=== PATIENT | female | born 1985 | race Caucasian/White ===

== ENCOUNTER 2016-06-02 21:55 | Emergency (ER) | payer BC ==
[2016-06-02 22:08] VITALS: BP 131/97
--- NOTE | 2016-06-02 22:20 | EDM.PDOC ---
ED HPI GENERAL MEDICAL PROBLEM - General Chief Complaint: ENT Problem Stated Complaint: FOOD LODGED IN THROAT Time Seen by Provider: 06/02/16 22:20 - History of Present Illness INITIAL COMMENTS - FREE TEXT/NARRATIVE: 31-year-old female presents to the emergency room with a sensation that something is stuck in her throat. This seems to be an ongoing problem over the last 2 months perhaps getting worse. This evening it was aggravating by eating pork chops.the patient is able to swallow and drink and eat without to much difficulty. Just feels like she has something stuck. She points to the area of her cricoid cartilage. The patient does not have a history of thyroid problems. She is 5 months and still nursing. She has intermittent acid reflux and takes Pepcid on an as- needed basis this could be a couple of times a week. During her she had to take Pepcid throughout most of the . Generally the patient has enjoyed good health. She uses as needed Pepcid and is taking calcium and vitamins. - Related Data Allergies Allergy/AdvReac Type Severity Reaction Status Date / Time No Known Allergies Allergy Verified 12/17/15 09:02 Home Meds: Home Meds Vit W-Ca,Fe,FA(<1 mg) [ Vitamins] 1 tab PO DAILY 12/17/15 [ History] Ranitidine [Zantac] 150 mg PO BID PRN 12/17/15 [History] Calcium Carbonate [Calcium] 500 mg PO DAILY 06/02/16 [History] Lansoprazole [Prevacid] 30 mg PO Q24H #30 capsule. 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 LEEP 2012 Endocrine/Metabolic History: Reports: Diabetes, gestational Dermatologic History: Reports: Eczema - Past Surgical History Female Surgical History: Reports: LEEP Other Female Surgeries/Procedures: 2012 Social & Family History - Family History Family Medical History: Noncontributory - Tobacco Use Smoking Status *Q: Never Smoker - Caffeine Use Caffeine Use: Reports: Coffee - Recreational Drug Use Recreational Drug Use: No ED ROS GENERAL - Review of Systems Review Of Systems: See Below Constitutional: Reports: no symptoms. Denies: fever, chills HEENT: Reports: Other (see history of present illness) Respiratory: Reports: no symptoms Cardiovascular: Reports: No symptoms GI/Abdominal: Reports: No symptoms : Reports: other (she has irregular periods recently had an IEP placed) Musculoskeletal: Reports: no symptoms Neurological: Reports: no symptoms ED EXAM, GENERAL - Physical Exam Exam: See Below Exam Limited By: No limitations General Appearance: alert, no apparent distress Ears: normal external exam, normal canal, hearing grossly normal, normal TMs Nose: normal inspection, normal mucosa, no blood Throat/Mouth: Normal inspection Head: atraumatic, normocephalic Neck: normal inspection, supple, non-tender, full range of motion Respiratory/Chest: no respiratory distress, lungs clear, normal breath sounds Cardiovascular: regular rate, rhythm, no edema, no murmur GI/Abdominal: normal bowel sounds, soft, non tender Course - Vital Signs Last Recorded V/S: Last Vital Signs Temp 35.6 C 06/02/16 22:04 Pulse 59 L 06/02/16 22:04 Resp 16 06/02/16 22:04 BP 131/97 H 06/02/16 22:04 Pulse Ox 97 06/02/16 22:04 - Orders/Labs/Meds Orders: Active Orders 24 hr Category Date Time Status Chest 2V [CR] Stat Exams 06/02/16 22:37 Taken Neck Soft Tissue [CR] Stat Exams 06/02/16 22:45 Taken Soft Tissue Neck w Cont [CT] Stat Exams 06/03/16 00:41 Taken Labs: Laboratory Tests 06/02/16 06/02/16 06/02/16 Range/Units 22:45 22:45 22:45 WBC 8.25 (3.98-10.04) K/mm3 RBC 5.21 (3.98-5.22) M/mm3 Hgb 15.4 (11.2-15.7) gm/L Hct 45.1 H (34.1-44.9) % MCV 86.6 (79.4-94.8) fl MCH 29.6 (25.6-32.2) pg MCHC 34.1 (32.2-35.5) g/dl RDW Std Deviation 38.5 (36.4-46.3) fL Plt Count 258 (182-369) K/mm3 MPV 10.7 (9.4-12.3) fl Neutrophils % (Manual) 49 (40-60) % Band Neutrophils % 0 (0-10) % Lymphocytes % (Manual) 50 H (20-40) % Atypical Lymphs % 0 % Immat Monocytes % (Man) 0 Monocytes % (Manual) 1 L (2-10) % Eosinophils % (Manual) 0 L (0.7-5.8) % Basophils % (Manual) 0 L (0.1-1.2) Metamyelocytes % 0 Myelocytes % 0 Promyelocytes % 0 Blast Cells % 0 Plasma Cell % (Manual) 0 Nucleated RBCs 0.0 % Platelet Estimate Adequate RBC Morph Comment Normal Sodium 141 (136-145) mEq/L Potassium 3.7 (3.5-5.1) mEq/L Chloride 102 (98-107) mEq/L Carbon Dioxide 29 (21-32) mEq/L Anion Gap 13.7 (5-15) BUN 12 (7-18) mg/dL Creatinine 0.7 (0.55-1.02) mg/dL Est Cr Clr Drug Dosing 102.86 mL/min Estimated GFR (MDRD) > 60 (>60) mL/min BUN/Creatinine Ratio 17.1 (14-18) Glucose 87 (74-106) mg/dL Calcium 10.5 H (8.5-10.1) mg/dL Total Bilirubin 0.5 (0.2-1.0) mg/dL AST 14 L (15-37) U/L ALT 24 (14-59) U/L Alkaline Phosphatase 150 H (46-116) U/L Total Protein 8.0 (6.4-8.2) g/dl Albumin 4.4 (3.4-5.0) g/dl Globulin 3.6 gm/dL Albumin/Globulin Ratio 1.2 (1-2) TSH 3rd Generation (0.358-3.74) uIU/mL HCG, Qual Negative (NEGATIVE) 06/02/16 Range/Units 22:45 WBC (3.98-10.04) K/mm3 RBC (3.98-5.22) M/mm3 Hgb (11.2-15.7) gm/L Hct (34.1-44.9) % MCV (79.4-94.8) fl MCH (25.6-32.2) pg MCHC (32.2-35.5) g/dl RDW Std Deviation (36.4-46.3) fL Plt Count (182-369) K/mm3 MPV (9.4-12.3) fl Neutrophils % (Manual) (40-60) % Band Neutrophils % (0-10) % Lymphocytes % (Manual) (20-40) % Atypical Lymphs % % Immat Monocytes % (Man) Monocytes % (Manual) (2-10) % Eosinophils % (Manual) (0.7-5.8) % Basophils % (Manual) (0.1-1.2) Metamyelocytes % Myelocytes % Promyelocytes % Blast Cells % Plasma Cell % (Manual) Nucleated RBCs % Platelet Estimate RBC Morph Comment Sodium (136-145) mEq/L Potassium (3.5-5.1) mEq/L Chloride (98-107) mEq/L Carbon Dioxide (21-32) mEq/L Anion Gap (5-15) BUN (7-18) mg/dL Creatinine (0.55-1.02) mg/dL Est Cr Clr Drug Dosing mL/min Estimated GFR (MDRD) (>60) mL/min BUN/Creatinine Ratio (14-18) Glucose (74-106) mg/dL Calcium (8.5-10.1) mg/dL Total Bilirubin (0.2-1.0) mg/dL AST (15-37) U/L ALT (14-59) U/L Alkaline Phosphatase (46-116) U/L Total Protein (6.4-8.2) g/dl Albumin (3.4-5.0) g/dl Globulin gm/dL Albumin/Globulin Ratio (1-2) TSH 3rd Generation 2.321 (0.358-3.74) uIU/mL HCG, Qual (NEGATIVE) Meds: Medications Discontinued Medications Generic Name Dose Route Start Last Admin Trade Name Freq PRN Reason Stop Dose Admin Glucagon 1 mg 06/02/16 22:32 06/02/16 22:47 Glucagen IVPUSH 06/02/16 22:33 1 mg ONETIME ONE Administration Lactated Ringer's 500 mls @ 999 mls/hr 06/03/16 00:39 06/03/16 00:46 Ringers, Lactated IV 06/03/16 01:09 999 mls/hr .BOLUS ONE Administration Iopamidol 100 ml 06/03/16 01:18 06/03/16 01:19 Isovue-300 (61%) IVPUSH 06/03/16 01:19 80 ml ONETIME ONE Administration Pantoprazole Sodium 40 mg 06/02/16 22:36 06/02/16 22:51 Protonix Iv IVPUSH 06/02/16 22:37 40 mg ONETIME ONE Administration - Re-Assessments/Exams Free Text/Narrative Re-Assessment/Exam: 06/02/16 23:53 patient is doing better after glucagon. Laboratory evaluation unrevealing TSH normal. Chest x-ray is unremarkable soft tissue neck x-rays reveal what could be some soft tissue swelling in the epiglottic area, we will forward this to [facility] before pursuing further imaging. Early on in the patient's care the case was discussed with Dr. Roberto this is been going on for a couple of months worse over time. She has a history of intermittent reflux. She's 5 months and during her she had to stay on Pepcid. She's been using Pepcid when necessary several times a week. It sounds like a lot of her symptoms may be due to reflux and not necessarily a foreign body. Albeit the patient may been worsened by he eating pork chops this evening. But she's much better after the glucagon. 06/03/16 01:01 Dr. Powers radiologist from [facility] called and confirmed the soft tissue thickening in the preepiglottic space in the area it at the glottic folds as well as some possible thickening in the epiglottis she recommended further imaging with CAT scan. I discussed this with the patient I believe her situation is fairly stable however if something is going on they could compromise her airway we are better off knowing now as we have limited resources here. The patient is in agreement to this for getting the CAT scan now rather than getting one as an outpatient. 06/03/16 01:[address] is found to be unremarkable and is now believed that the x-ray was due to artifact. The patient will be discharged home on daily Prevacid. She should follow up with Dr. Roberto this next week. Departure - Departure Time of Disposition: 01:48 Disposition: Home, Self-Care 01 Clinical Impression: Sensation of foreign body in esophagus, Gastroesophageal reflux disease Prescriptions: Lansoprazole [Prevacid] 30 mg PO Q24H #30 capsule. Referrals: PCP,None [Primary Care Provider] - Cari Roberto MD [Physician] - Forms: ED Department Discharge Additional Instructions: Return to the emergency room with any questions or problems. Followup with Dr. Roberto next week. You've been started on Prevacid take one daily. This works best if taken 30-60 minutes before your evening or morning meal. Pump your breast milk one time and dump as you received IV contrast. - My Orders Last 24 Hours: My Active Orders 06/02/16 22:37 Chest 2V [CR] Stat 06/02/16 22:45 Neck Soft Tissue [CR] Stat 06/03/16 00:41 Soft Tissue Neck w Cont [CT] Stat - Assessment/Plan Last 24 Hours: My Active Orders 06/02/16 22:37 Chest 2V [CR] Stat 06/02/16 22:45 Neck Soft Tissue [CR] Stat 06/03/16 00:41 Soft Tissue Neck w Cont [CT] Stat
[2016-06-02] MEDS: Glucagon,Human Recombinant 1 MG Vial IVPUSH ONE (22:47)
[2016-06-02] MEDS: Pantoprazole 40 MG Vial IVPUSH ONE (22:51)
[2016-06-03] MEDS: Lactated Ringers 500 ML IV ONE (00:46)
[2016-06-03] MEDS: Iopamidol 612 MG/ML 100 ML Bottle IVPUSH ONE (01:19)
--- NOTE | 2016-06-03 10:01 | CT ---
CT neck Technique: Multiple axial sections through the neck were obtained from above the external auditory canals inferiorly to the lung apices. Intravenous contrast was utilized. Findings: Paranasal sinuses are clear. Mastoid sinuses are clear. Middle ear cavities are clear. Normal enhancing vascular structures are noted within the neck. Submandibular and parotid salivary glands are unremarkable. No adenopathy or neck mass is seen. Small normal-appearing scattered lymph nodes are seen. Visualized lung apices are clear. Prevertebral soft tissues are normal. Parapharyngeal soft tissues are normal. Epiglottis appears within normal limits. Uvula appears slightly prominent in size. Bone window settings were reviewed which appear unremarkable. Impression: 1. Uvula appears slightly prominent in size. Please correlate clinically. Difficult to exclude mild soft tissue swelling. 2. CT study of the neck is otherwise unremarkable. Diagnostic code #3 Agree with preliminary report issued by [facility] (additional note of possible swelling within the uvula), ([facility] report dictated on 06/03/16, 2:41 AM Central Time)
--- NOTE | 2016-06-04 08:46 | CR ---
Chest: Two views of the chest were obtained. Comparison: No previous chest x-ray. Heart size and mediastinum are within normal limits. Lungs are clear. Bony structures are unremarkable. No opaque foreign object is seen. Impression: 1. Nothing acute is seen on two-view chest x-ray. Diagnostic code #1
--- NOTE | 2016-06-04 08:46 | CR ---
Soft tissue neck: Two views of the neck were obtained for soft tissue purposes. Mild cervical and upper thoracic scoliosis is noted. Epiglottis is normal. Prevertebral soft tissues are normal. No opaque foreign object is seen. Impression: 1. Incidental finding. No opaque foreign object is appreciated. Diagnostic code #2
== END 2016-06-03 02:00 | disposition home or self-care (01) ==
LOC: JD.ED 21:55
DX: K22.8 Other specified diseases of esophagus (principal); K21.9 Gastro-esophageal reflux disease without esophagitis; Z79.899 Other long term (current) drug therapy; Z98.890 Other specified postprocedural states
CPT/HCPCS: 36415; 70360; 70491; 71020; 80053; 84443; 84703; 85025; 96361; 96374; 96375; 99284; C9113; J1610; J7120; Q9967

== ENCOUNTER 2016-06-06 22:27 | Emergency (ER) | payer BC ==
[2016-06-06 22:45] VITALS: BP 159/90
--- NOTE | 2016-06-06 22:58 | EDM.PDOC ---
ED HPI Trauma - General Chief Complaint: Lower Extremity Injury/Pain Stated Complaint: INJURED LEFT FOOT Time Seen by Provider: 06/06/16 22:58 Source: Reports: Patient, Family (spouse) History Limitations: Reports: No limitations - History of Present Illness INITIAL COMMENTS - FREE TEXT/NARRATIVE: 30-year-old female presents the ED with an acute injury to her left lateral foot. Treatment per she is breast-feeding her and when she got up to put the baby in the crib she did not appreciate that her left foot had gone to sleep. This resulted in an inversion injury to the foot and ankle. She did not fall and managed to get the baby to the crib safely. She heard a crack and pop and is unable to weight-bear normally. She can put light weight on her heel only. No other injuries occurred. Symptom Onset Date: 06/06/16 Symptom Onset Time: 22:00 Occurred When: just prior to arrival Occurred Where: home Method of Injury: other (inversion injury left foot) Severity: moderate Pain/Injury Location: Reports: lower extremity, left Consciousness: Reports: no loss of consciousness (left lateral foot), remembers incident, remembers coming to hosp Associated Symptoms: Reports: no other symptoms Allergies/ADRs: Allergies No Known Allergies Allergy (Verified 06/06/16 22:44) Home Medications: Ambulatory Orders Vit W-Ca,Fe,FA(<1 mg) [ Vitamins] 1 tab PO DAILY 12/17/15 [ Confirmed 06/06/16] Calcium Carbonate [Calcium] 500 mg PO DAILY 06/02/16 [Confirmed 06/06/16] Lansoprazole [Prevacid] 30 mg PO Q24H #30 capsule. 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 Better since she delivered up her .) Genitourinary: Reports: no symptoms Musculoskeletal: Reports: other (left foot pain at present.) Skin: Reports: no symptoms Neurological: Reports: no symptoms Trauma Exam - Physical Exam Exam: See Below Exam Limited By: No limitations General Appearance: Reports: alert, WD/WN, moderate distress (does appear to be in moderate amount of pain.) Head: Reports: atraumatic, normocephalic Extremities: Reports: other (chest no pain on palpation of the proximal fibula and tibia. No pain in the midshaft of the tib-fib. The ankle itself appears to be normal. There may be some mild tenderness along the lateral ligaments anteriorly. There is a hematoma developing over the fourth and fifth mid metatarsals. Any movement of the toes causes pain suspicious for fracture of the metatarsal.) Neurologic: Reports: no motor/sensory deficits, alert, oriented x 3 Skin: Reports: Normal color, Warm/dry - [place] Coma Score Best Eye Response ([place]): (4) open spontaneously Best Verbal Response ([place]): (5) oriented Best Motor Response ([place]): (6) obeys commands [place] Total: 15 Course - Vital Signs Last Recorded V/S: Last Vital Signs Temp 36.4 C 06/06/16 22:41 Pulse 85 06/06/16 22:41 Resp 18 06/06/16 22:41 BP 159/90 H 06/06/16 22:41 Pulse Ox 98 06/06/16 22:41 - Orders/Labs/Meds Orders: Active Orders 24 hr Category Date Time Status Foot Comp Min 3V Lt [CR] Stat Exams 06/06/16 22:54 Taken - Radiology Interpretation Free Text/Narrative:: 30-year-old female presents the ED with acute injury to her left foot. Foot was asleep when she got up to put the baby into the crib. She inverted the foot and ankle. The ankle itself appears to be intact although there may be a mild strain of the anterior lateral ligament. Hematoma is noted over the fourth and fifth mid metatarsals. Suspect fracture. Plan x-ray left foot. - Re-Assessments/Exams Free Text/Narrative Re-Assessment/Exam: 06/06/16 23:27x-rays of the left foot do not reveal any fractures in the metatarsals or mid foot bones that I can identify. Pain somewhat surprised by this as I anticipated fracture clinically patient will be treated with nonweightbearing crutch walking. Lars wrap applied in the ED. Ice to the area for one half hour out of every 4 hours for the next 2 days. Motrin 600 mg every 6 hours needed for pain relief. Followup if not completely back to normal in 10 days' time Departure - Departure Time of Disposition: 23:24 Disposition: Home, Self-Care 01 Condition: fair Clinical Impression: Contusion of foot, left Qualifiers: Encounter type: initial encounter Qualified Code(s): S90.32XA - Contusion of left foot, initial encounter Referrals: PCP,None [Primary Care Provider] - Forms: ED Department Discharge Additional Instructions: evaluation in the emergency today in regards to acute injury to her left lateral foot. Inadvertently inverted the foot when he got up and did not appreciate the foot had fallen asleep while breast-feeding her . [place] and heard a loud pop when this occurred. Obvious hematoma swelling occurring over the lateral aspect of the mid fourth and fifth metatarsals. Mild strain of the anterior lateral ankle ligament appreciated on exam. X-rays of the foot and ankle however did not reveal any broken bones. This is good news for you. Suggest nonweightbearing crutch walking for the next 3-4 days until he can put full weight on her foot without any pain. Lars wrap applied in the ED should stay on overnight and all-day tomorrow but should come off tomorrow night and then back on during the day for the next 3 days. Ice pack to the area one half hour out of every 4 hours for the next 48 hours. Motrin 600 mg every 6 hours as needed for pain relief. If not completely back to normal in 10 days' time repeat x-rays should be done in case there is a hairline fracture that we cannot visualize on today's x-rays. - My Orders Last 24 Hours: My Active Orders 06/06/16 22:54 Foot Comp Min 3V Lt [CR] Stat - Assessment/Plan Last 24 Hours: My Active Orders 06/06/16 22:54 Foot Comp Min 3V Lt [CR] Stat
--- NOTE | 2016-06-07 08:01 | CR ---
Left foot: Four views of the left foot were obtained. Comparison: No previous foot study. Joint spaces are maintained. No fracture, dislocation or other bony abnormality is seen. Impression: 1. No bony abnormality is identified on left foot exam. Diagnostic code #1
== END 2016-06-06 23:38 | disposition home or self-care (01) ==
LOC: JD.ED 22:27
DX: S90.32XA Contusion of left foot, initial encounter (principal); K21.9 Gastro-esophageal reflux disease without esophagitis; X50.1XXA Overexertion from prolonged static or awkward postures, initial encounter; Y92.009 Unspecified place in unspecified non-institutional (private) residence as the place of occurrence of the external cause
CPT/HCPCS: 73630-26-LT; 73630-LT; 99282; 99283

== ENCOUNTER 2020-08-21 08:13 | Emergency (ER) | payer BC ==
--- NOTE | 2020-08-21 11:25 | EDM.PDOC ---
ED HPI GENERAL MEDICAL PROBLEM - General Chief Complaint: Abdominal Pain Stated Complaint: LOWER ABD PAIN Time Seen by Provider: 08/21/20 08:38 Source of Information: Reports: Patient, RN Notes Reviewed - History of Present Illness INITIAL COMMENTS - FREE TEXT/NARRATIVE: 35 yr old female with onset of abd pain yesterday afternoon, was better during the night and than more severe this early AM. Continues with sharp mid abd pain that does not radiate. No nausea, vomiting, or diarrhea. Denies constipation. Had a "nl BM earlier today". No chest pain or difficulty breathing. Still has her appendix. Has an IUD. Denies any possibility of , "has not been sexually active for more than 4 months". Lower Abdomen Pain Score (Numeric/FACES): 6 - Related Data Allergies Allergy/AdvReac Type Severity Reaction Status Date / Time amoxicillin [From Augmentin] Allergy Cannot Verified 08/21/20 08:49 Remember clavulanic acid Allergy Cannot Verified 08/21/20 08:49 [From Augmentin] Remember Home Meds: Home Meds Lansoprazole [Prevacid] 30 mg PO Q24H #30 capsule. 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 LEEP 2011 Psychiatric History: Reports: Anxiety Endocrine/Metabolic History: Reports: Diabetes, Gestational Dermatologic History: Reports: Eczema - Past Surgical History HEENT Surgical History: Reports: Oral Surgery Female Surgical History: Reports: LEEP Other Female Surgeries/Procedures: 2012 Social & Family History - Family History Family Medical History: No Pertinent Family History - Tobacco Use Tobacco Use Status *Q: Never Tobacco User - Caffeine Use Caffeine Use: Reports: None - Recreational Drug Use Recreational Drug Use: No - Living Situation & Occupation Living situation: Reports: Occupation: Other ED ROS GENERAL - Review of Systems Review Of Systems: See Below Constitutional: Denies: Fever, Chills, Diaphoresis HEENT: Reports: No Symptoms Respiratory: Denies: Shortness of Breath Cardiovascular: Denies: Chest Pain GI/Abdominal: Reports: Abdominal Pain. Denies: Constipation, Diarrhea, Hematochezia, Melena, Nausea, Vomiting Musculoskeletal: Denies: Back Pain Skin: Reports: No Symptoms Neurological: Reports: No Symptoms ED EXAM, GI/ABD - Physical Exam Exam: See Below General Appearance: Alert, Mild Distress Throat/Mouth: Normal Inspection Head: Atraumatic Neck: Supple Respiratory/Chest: No Respiratory Distress, Lungs Clear, Normal Breath Sounds Cardiovascular: Regular Rate, Rhythm GI/Abdominal Exam: Soft, Tender (mid abd, Mild tenderness RLQ and LLQ). No: Guarding, Rebound Back Exam: No: CVA Tenderness (L), CVA Tenderness (R) Extremities: Normal Inspection Neurological: Alert, Oriented, No Motor/Sensory Deficits Skin Exam: Warm, Dry, Normal Color Course - Vital Signs Last Recorded V/S: Last Vital Signs Temp 98.4 F 08/21/20 15:03 Pulse 70 08/21/20 15:03 Resp 12 08/21/20 15:03 BP 120/73 08/21/20 15:03 Pulse Ox 100 08/21/20 15:03 - Orders/Labs/Meds Orders: Active Orders 24 hr Category Date Time Status Peripheral IV Care [RC] . DIRECTED Care 08/21/20 11:26 Active CULTURE URINE [MREF] Stat Lab 08/21/20 09:00 Received Sodium Chloride 0.9% [Normal Saline] 1,000 ml Med 08/21/20 11:30 Active IV ASDIRECTED Sodium Chloride 0.9% [Saline Flush] Med 08/21/20 11:26 Active 10 ml FLUSH ASDIRECTED PRN Sodium Chloride 0.9% [Saline Flush] Med 08/21/20 11:58 Active 10 ml FLUSH ONETIME PRN Peripheral IV Insertion Adult [OM.PC] Stat Oth 08/21/20 11:26 Ordered Medication Orders Sodium Chloride (Normal Saline) 1,000 mls @ 150 mls/hr IV ASDIRECTED FABIOLA Last Admin: 08/21/20 12:05 Dose: 150 mls/hr Documented by: KIERRA Sodium Chloride (Sodium Chloride 0.9% 10 Ml Syringe) 10 ml FLUSH ASDIRECTED PRN PRN Reason: Keep Vein Open Sodium Chloride (Sodium Chloride 0.9% 10 Ml Syringe) 10 ml FLUSH ONETIME PRN PRN Reason: IV FLUSH Last Admin: 08/21/20 12:10 Dose: 10 ml Documented by: Admin: 08/21/20 12:05 Dose: 10 ml Documented by: KIERRA Labs: Laboratory Tests 08/21/20 08/21/20 08/21/20 Range/Units 09:00 09:12 09:12 WBC 8.63 (3.98-10.04) K/mm3 RBC 5.03 (3.98-5.22) M/mm3 Hgb 15.0 (11.2-15.7) gm/dl Hct 44.7 (34.1-44.9) % MCV 88.9 (79.4-94.8) fl MCH 29.8 (25.6-32.2) pg MCHC 33.6 (32.2-35.5) g/dl RDW Std Deviation 40.0 (36.4-46.3) fL Plt Count 241 (182-369) K/mm3 MPV 10.3 (9.4-12.3) fl Neut % (Auto) 77.3 H (34.0-71.1) % Lymph % (Auto) 12.7 L (19.3-51.7) % [place] % (Auto) 8.9 (4.7-12.5) % Eos % (Auto) 0.8 (0.7-5.8) Baso % (Auto) 0.2 (0.1-1.2) % Neut # (Auto) 6.66 H (1.56-6.13) K/mm3 Lymph # (Auto) 1.10 L (1.18-3.74) K/mm3 [place] # (Auto) 0.77 H (0.24-0.36) K/mm3 Eos # (Auto) 0.07 (0.04-0.36) K/mm3 Baso # (Auto) 0.02 (0.01-0.08) K/mm3 Sodium (136-145) mEq/L Potassium (3.5-5.1) mEq/L Chloride (98-107) mEq/L Carbon Dioxide (21-32) mEq/L Anion Gap (5-15) BUN (7-18) mg/dL Creatinine (0.55-1.02) mg/dL Est Cr Clr Drug Dosing mL/min Estimated GFR (MDRD) (>60) mL/min BUN/Creatinine Ratio (14-18) Glucose (70-99) mg/dL Calcium (8.5-10.1) mg/dL Total Bilirubin (0.2-1.0) mg/dL AST (15-37) U/L ALT (14-59) U/L Alkaline Phosphatase (46-116) U/L C-Reactive Protein 0.9 (<1.0) mg/dL Total Protein (6.4-8.2) g/dl Albumin (3.4-5.0) g/dl Globulin gm/dL Albumin/Globulin Ratio (1-2) Lipase (73-393) U/L Urine Color Yellow (Yellow) Urine Appearance Clear (Clear) Urine pH 7.0 (5.0-8.0) Ur Specific [place] 1.020 (1.005-1.030) Urine Protein Negative (Negative) Urine Glucose (UA) Negative (Negative) Urine Ketones Negative (Negative) Urine Occult Blood Negative (Negative) Urine Nitrite Negative (Negative) Urine Bilirubin Negative (Negative) Urine Urobilinogen 0.2 (0.2-1.0) Ur Leukocyte Esterase Trace H (Negative) Urine RBC 0-5 (0-5) /hpf Urine WBC 5-10 H (0-5) /hpf Ur Squamous Epith Cells 0-5 (0-5) /hpf Urine Bacteria Few (FEW) /hpf Urine Mucus Few (FEW) /hpf /20/ Range/Units 09:12 WBC (3.98-10.04) K/mm3 RBC (3.98-5.22) M/mm3 Hgb (11.2-15.7) gm/dl Hct (34.1-44.9) % MCV (79.4-94.8) fl MCH (25.6-32.2) pg MCHC (32.2-35.5) g/dl RDW Std Deviation (36.4-46.3) fL Plt Count (182-369) K/mm3 MPV (9.4-12.3) fl Neut % (Auto) (34.0-71.1) % Lymph % (Auto) (19.3-51.7) % [place] % (Auto) (4.7-12.5) % Eos % (Auto) (0.7-5.8) Baso % (Auto) (0.1-1.2) % Neut # (Auto) (1.56-6.13) K/mm3 Lymph # (Auto) (1.18-3.74) K/mm3 [place] # (Auto) (0.24-0.36) K/mm3 Eos # (Auto) (0.04-0.36) K/mm3 Baso # (Auto) (0.01-0.08) K/mm3 Sodium 139 (136-145) mEq/L Potassium 4.3 (3.5-5.1) mEq/L Chloride 103 (98-107) mEq/L Carbon Dioxide 24 (21-32) mEq/L Anion Gap 16.3 H (5-15) BUN 20 H (7-18) mg/dL Creatinine 0.7 (0.55-1.02) mg/dL Est Cr Clr Drug Dosing 95.02 mL/min Estimated GFR (MDRD) > 60 (>60) mL/min BUN/Creatinine Ratio 28.6 H (14-18) Glucose 85 (70-99) mg/dL Calcium 9.2 (8.5-10.1) mg/dL Total Bilirubin 0.5 (0.2-1.0) mg/dL AST 15 (15-37) U/L ALT 23 (14-59) U/L Alkaline Phosphatase 97 (46-116) U/L C-Reactive Protein (<1.0) mg/dL Total Protein 7.5 (6.4-8.2) g/dl Albumin 4.2 (3.4-5.0) g/dl Globulin 3.3 gm/dL Albumin/Globulin Ratio 1.3 (1-2) Lipase 144 (73-393) U/L Urine Color (Yellow) Urine Appearance (Clear) Urine pH (5.0-8.0) Ur Specific [place] (1.005-1.030) Urine Protein (Negative) Urine Glucose (UA) (Negative) Urine Ketones (Negative) Urine Occult Blood (Negative) Urine Nitrite (Negative) Urine Bilirubin (Negative) Urine Urobilinogen (0.2-1.0) Ur Leukocyte Esterase (Negative) Urine RBC (0-5) /hpf Urine WBC (0-5) /hpf Ur Squamous Epith Cells (0-5) /hpf Urine Bacteria (FEW) /hpf Urine Mucus (FEW) /hpf Meds: Medications Generic Name Dose Route Start Last Admin Trade Name Freq PRN Reason Stop Dose Admin Sodium Chloride 1,000 mls @ 150 mls/hr 08/21/20 11:30 08/21/20 12:05 Normal Saline IV 150 mls/hr ASDIRECTED FABIOLA Administration Sodium Chloride 10 ml 08/21/20 11:26 Sodium Chloride 0.9% 10 Ml Syringe FLUSH ASDIRECTED PRN Keep Vein Open Sodium Chloride 10 ml 08/21/20 11:58 08/21/20 12:10 Sodium Chloride 0.9% 10 Ml Syringe FLUSH 10 ml ONETIME PRN Administration IV FLUSH Discontinued Medications Generic Name Dose Route Start Last Admin Trade Name Freq PRN Reason Stop Dose Admin Diatrizoate Meglum/Diatrizoate Sod 90 ml 08/21/20 11:58 08/21/20 12:11 Diatrizoate Meglumine/Diatrizoate Sodium 37% 120 Ml Bottle PO 08/21/20 11:59 30 ml ONETIME ONE Administration Iopamidol 100 ml 08/21/20 11:58 08/21/20 12:10 Iopamidol 612 Mg/Ml 100 Ml Bottle IVPUSH 08/21/20 11:59 100 ml ONETIME ONE Administration Ondansetron HCl 4 mg 08/21/20 11:26 08/21/20 12:05 Ondansetron 4 Mg/2 Ml Sdv IVPUSH 08/21/20 11:27 4 mg ONETIME ONE Administration - Re-Assessments/Exams Free Text/Narrative Re-Assessment/Exam: 08/21/20 11:30 WBC 8,600, CRP 0.9, Ua trace leukocyte only with no voiding sx. Still having moderate mid abd pain and tenderness, will add CMP and lipase. Have offered option of X rays, treat conservatively, see if it gets better worse over the next 12 to [address] abd/pelvis now. She prefers to do the CT now. 08/21/20 15:06 CT of Abd showed multiple lesions suggestive for hemangioma. US of liver recomended. Study also indicates they are hemangiomas. See Radiology report for details. Pt notified of US result. Discharge instr. as documented. Departure - Departure Time of Disposition: 14:07 Disposition: Home, Self-Care 01 Condition: Fair Clinical Impression: Abdominal pain Qualifiers: Abdominal location: periumbilical Qualified Code(s): R10.33 - Periumbilical pain - Discharge Information Instructions: Abdominal Pain, Adult, [id number] Referrals: Radha Stone PA-C [Primary Care Provider] - Forms: ED Department Discharge Additional Instructions: US of your liver has also been done. I will call you with results as soon as that report becomes available. If I have not called by 5 PM today call [phone] to see if we have the report. Clear liquids and very bland diet as tolerated for the next 24 hours. Tylenol q 6 to 8 hr as needed. Return to ED if symptoms worsening in any way. Follow up with your clinic provider if pain not resolved within 2 to 3 days as expected. Sepsis Event Note (ED) - Evaluation Sepsis Screening Result: No Definite Risk - Focused Exam Vital Signs: Vital Signs Temp Pulse Resp BP Pulse Ox 08/21/20 15:03 98.4 F 70 12 120/73 100 08/21/20 08:44 98.1 F 77 12 120/86 100 - My Orders Last 24 Hours: My Active Orders 08/21/20 09:00 CULTURE URINE [MREF] Stat 08/21/20 11:26 Peripheral IV Care [RC] . DIRECTED Sodium Chloride 0.9% [Saline Flush] 10 ml FLUSH ASDIRECTED PRN Peripheral IV Insertion Adult [OM.PC] Stat 08/21/20 11:30 Sodium Chloride 0.9% [Normal Saline] 1,000 ml IV ASDIRECTED 08/21/20 11:58 Sodium Chloride 0.9% [Saline Flush] 10 ml FLUSH ONETIME PRN - Assessment/Plan Last 24 Hours: My Active Orders 08/21/20 09:00 CULTURE URINE [MREF] Stat 08/21/20 11:26 Peripheral IV Care [RC] . DIRECTED Sodium Chloride 0.9% [Saline Flush] 10 ml FLUSH ASDIRECTED PRN Peripheral IV Insertion Adult [OM.PC] Stat 08/21/20 11:30 Sodium Chloride 0.9% [Normal Saline] 1,000 ml IV ASDIRECTED 08/21/20 11:58 Sodium Chloride 0.9% [Saline Flush] 10 ml FLUSH ONETIME PRN
[2020-08-21] MEDS ORDERED: Sodium Chloride 0.9% 10 ML Syringe FLUSH PRN (11:26)
[2020-08-21] MEDS ORDERED: Ondansetron 4 MG/2 ML SDV IVPUSH ONE (11:26)
[2020-08-21] MEDS ORDERED: Sodium Chloride 0.9% 1,000 ML IV SCH (11:30)
[2020-08-21] MEDS ORDERED: Iopamidol 612 MG/ML 100 ML Bottle IVPUSH ONE (11:58)
[2020-08-21] MEDS ORDERED: Diatrizoate Meglumine/Diatrizoate Sodium 37% 120 ML Bottle PO ONE (11:58)
[2020-08-21] MEDS: Sodium Chloride 0.9% 10 ML Syringe FLUSH PRN ×2 (12:05→12:10)
--- NOTE | 2020-08-21 12:41 | CT ---
CT abdomen and pelvis Technique: Multiple axial sections were obtained from above the dome of the diaphragm inferiorly through the pubic symphysis. Intravenous and oral contrast was utilized. Reconstructed coronal and sagittal images were obtained. Comparison: No prior CT abdomen or pelvis exam is available. Findings: Visualized lung bases show nothing acute. Small low density lesion is noted within the right lobe of the liver next to the ligamentum teres fissure measuring approximately 1.3 cm. This is not cystic. Slight fatty change is also noted next to the ligamentum teres fissure. Larger lesion is noted within the left lobe of the liver which measures 3.3 cm. This is not cystic in etiology. Two enhancing lesions are seen within the right lobe measuring 1.1 cm and 2.1 cm. On delayed images the hyperenhancing lesions disappear with significant decrease in prominence of the right lobe lesion. Left lobe lesion shows mild enhancement peripherally. Spleen size is normal. Gallbladder contains no calcified gallstones. Adrenal glands show no nodule. Kidneys show symmetric contrast enhancement with no hydronephrosis or mass being seen. Delayed images show contrast within the ureters as well as within the bladder. Pancreas shows no focal abnormality. Abdominal aorta shows no aneurysm. No retroperitoneal adenopathy or mesenteric abnormalities are seen. No pelvic mass or adenopathy is seen. There is an IUD noted within the uterus. Cyst is noted within the left ovary measuring approximately 4.2 cm. Appendix is not definitely visualized. No bowel dilatation is seen. Bone window settings were reviewed which show no acute osseous finding. Impression: 1. Multiple liver lesions are noted. These findings are most likely due to multiple hemangiomas. Ultrasound could be obtained of the liver to try and confirm by second modality. 2. Nonvisualized appendix. 3. 4.2 cm cyst within the left ovary. IUD is noted within the uterus. 4. No additional abnormality is seen on CT study of the abdomen and pelvis. Diagnostic code #3
[2020-08-21] MEDS ORDERED: LORazepam 1 MG Tab PO ONE (12:58)
--- NOTE | 2020-08-21 14:08 | US ---
Limited abdominal ultrasound: Multiple real-time images of the upper right abdomen were obtained. Comparison: Prior CT abdomen and pelvis study performed earlier on the same day (12:12 PM). Left-sided hyperechoic lesion is seen within the liver measuring up to 4.1 cm which correlates to CT exam and is felt compatible with a hemangioma. Smaller hyperechoic lesion is seen within the right lobe measuring 1.8 cm most likely due to additional hemangiomas. Small areas of increased enhancement on prior CT are not appreciated within the liver. Gallbladder contains no shadowing gallstones. No gallbladder wall thickening is seen. Common bile duct measures slightly prominent at 7.0 mm. Proximal aorta shows no aneurysm. Right kidney shows no hydronephrosis or mass. Right kidney has a length of 9.9 cm. Pancreas appears within normal limits. Impression: 1. Two hyperechoic lesions within the liver which correlate to dominant findings on previous CT study which are compatible with hemangiomas. 2. Common bile duct is slightly enlarged to 7.0 mm which is most likely incidental. No gallstones or other gallbladder abnormality is appreciated. 3. Other portions of the right upper quadrant abdominal ultrasound are unremarkable. Diagnostic code #2
[2020-08-21 15:05] VITALS: BP 120/73; PULSE 70
== END 2020-08-21 14:45 | disposition home or self-care (01) ==
LOC: JD.ED 08:13
DX: R10.33 Periumbilical pain (principal); Z88.0 Allergy status to penicillin; Z79.899 Other long term (current) drug therapy
CPT/HCPCS: 36415; 74177; 76705; 80053; 81001; 83690; 85025; 86140; 87086; 96374; 99284; J2405; J7030; Q9963; Q9967

== ENCOUNTER 2022-04-14 08:35 | Inpatient (IN) | payer BC ==
[2022-04-14] MEDS ORDERED: Dextrose 5%-0.9% NaCl 1,000 ML IV SCH (09:00)
[2022-04-14] MEDS ORDERED: Sodium Chloride 0.9% 10 ML Syringe FLUSH PRN (09:05)
[2022-04-14] MEDS ORDERED: Iopamidol 755 Mg/ML 100 ML Bottle IVPUSH ONE (09:05)
[2022-04-14] MEDS ORDERED: Sodium Chloride 0.9% 100 ML IV SCH (09:15)
[2022-04-14 09:53] LABS: CORONAVIRUS COVID-19 NAA NEGATIVE (NEGATIVE)
[2022-04-14] MEDS ORDERED: Oseltamivir 75 MG Cap PO ONE (11:31)
[2022-04-14] MEDS ORDERED: Albuterol/Ipratropium 3.0-0.5 MG/3 ML Neb Soln NEB PRN (11:32)
[2022-04-14] MEDS ORDERED: Ibuprofen 600 MG Tab PO ONE (12:25)
[2022-04-14] MEDS ORDERED: Dextrose 5%-Lactated Ringers 1,000 ML IV SCH (12:30)
[2022-04-14] MEDS ORDERED: Acetaminophen 325 MG Tab PO PRN (15:23)
[2022-04-14] MEDS ORDERED: Ondansetron 4 MG/2 ML SDV IV PRN (15:23)
[2022-04-14] MEDS ORDERED: Magnesium Sulfate/Water 2 GM in Premix Bag 1 BAG IV ONE (15:27)
[2022-04-14] MEDS ORDERED: Nicotine 14 MG/24 Hr Patch TRDERM SCH (15:45)
[2022-04-14] MEDS ORDERED: methylPREDNISolone Sodium Succinate 40 MG/1 ML SDV IVPUSH ONE (16:17)
[2022-04-14] MEDS: Enoxaparin 40 MG/0.4 ML Syringe SUBCUT SCH (16:51)
[2022-04-14] MEDS ORDERED: Pantoprazole 40 MG Tab.CR PO SCH (17:30)
[2022-04-14] MEDS: Oseltamivir 75 MG Cap PO SCH ×2 (19:49→22:09)
[2022-04-14] MEDS: Sodium Chloride 0.9% 1,000 ML IV SCH (19:50)
[2022-04-14] MEDS: methylPREDNISolone Sodium Succinate 40 MG/1 ML SDV IVPUSH SCH (22:09)
[2022-04-15] MEDS: Sodium Chloride 0.9% 1,000 ML IV SCH (05:49)
[2022-04-15] MEDS ORDERED: Pantoprazole 40 MG Tab.CR PO SCH ×2 (06:00)
[2022-04-15] MEDS: Enoxaparin 40 MG/0.4 ML Syringe SUBCUT SCH ×2 (08:18→08:30)
[2022-04-15] MEDS: methylPREDNISolone Sodium Succinate 40 MG/1 ML SDV IVPUSH SCH ×2 (08:18→21:04)
[2022-04-15] MEDS: Sertraline 25 MG Tab PO SCH (08:18)
[2022-04-15] MEDS: Oseltamivir 75 MG Cap PO SCH ×2 (08:19→21:04)
[2022-04-15] MEDS ORDERED: Pantoprazole 40 MG Tab.CR PO ONE (14:57)
[2022-04-15] MEDS ORDERED: Nicotine 14 MG/24 Hr Patch TRDERM SCH (16:00)
[2022-04-15] MEDS: Albuterol/Ipratropium 3.0-0.5 MG/3 ML Neb Soln NEB PRN (16:05)
[2022-04-16] MEDS ORDERED: guaiFENesin/Dextromethorphan 100-10 MG/5 ML Soln 5 ML Cup PO PRN (06:05)
[2022-04-16] MEDS ORDERED: guaiFENesin/Dextromethorphan 100-10 MG/5 ML Soln 5 ML Cup PO ONE (07:41)
[2022-04-16] MEDS ORDERED: Benzonatate 100 MG Cap PO PRN (07:42)
[2022-04-16] MEDS: Sertraline 25 MG Tab PO SCH (08:48)
[2022-04-16] MEDS: Enoxaparin 40 MG/0.4 ML Syringe SUBCUT SCH (08:48)
[2022-04-16] MEDS: Oseltamivir 75 MG Cap PO SCH ×2 (08:48→20:14)
[2022-04-16] MEDS: methylPREDNISolone Sodium Succinate 40 MG/1 ML SDV IVPUSH SCH ×2 (08:49→20:14)
[2022-04-16] MEDS: Pantoprazole 40 MG Tab.CR PO SCH ×2 (08:52→19:16)
[2022-04-16] MEDS: Magnesium Oxide 400 MG Tab PO SCH (12:32)
[2022-04-16] MEDS: guaiFENesin/Dextromethorphan 100-10 MG/5 ML Soln 5 ML Cup PO SCH ×2 (14:46→20:14)
[2022-04-17] MEDS: Pantoprazole 40 MG Tab.CR PO SCH (05:05)
[2022-04-17] MEDS: guaiFENesin/Dextromethorphan 100-10 MG/5 ML Soln 5 ML Cup PO SCH (07:41)
[2022-04-17 07:59] VITALS: BP 124/87; PULSE 66
[2022-04-17] MEDS: Albuterol/Ipratropium 3.0-0.5 MG/3 ML Neb Soln NEB PRN (08:11)
[2022-04-17] MEDS: methylPREDNISolone Sodium Succinate 40 MG/1 ML SDV IVPUSH SCH (08:47)
[2022-04-17] MEDS: Oseltamivir 75 MG Cap PO SCH (08:47)
[2022-04-17] MEDS: Magnesium Oxide 400 MG Tab PO SCH (08:47)
[2022-04-17] MEDS: Sertraline 25 MG Tab PO SCH (08:48)
[2022-04-17] MEDS: Enoxaparin 40 MG/0.4 ML Syringe SUBCUT SCH (08:58)
== END 2022-04-17 10:50 | disposition home or self-care (01) | DRG 113 ==
LOC: JD.ED 08:35 → JD.MS 15:27
PROVIDERS: ADMIT Pediatrics; ATTEND Pediatrics
DX: J10.1 Influenza due to other identified influenza virus with other respiratory manifestations (principal); J96.01 Acute respiratory failure with hypoxia; Z20.822 Contact with and (suspected) exposure to COVID-19; K21.9 Gastro-esophageal reflux disease without esophagitis; F41.9 Anxiety disorder, unspecified; F17.210 Nicotine dependence, cigarettes, uncomplicated; E83.42 Hypomagnesemia; R93.2 Abnormal findings on diagnostic imaging of liver and biliary tract; K44.9 Diaphragmatic hernia without obstruction or gangrene; Z88.0 Allergy status to penicillin; Z88.8 Allergy status to other drugs, medicaments and biological substances; Z79.899 Other long term (current) drug therapy; Z86.32 Personal history of gestational diabetes
CPT/HCPCS: 0241U; 36415; 36600; 71260; 71260-26; 80048; 80053; 82553; 82803; 83735; 83880; 85025; 85379; 85610; 85730; 86140; 93005; 94640; 94667; 94668; 94760; 94761; A9270-GY; J1650; J2920; J3475; J3490; J7030; J7042; J7121; J7620-GY; Q9967

== ENCOUNTER 2023-03-08 17:03 | Emergency (ER) | payer BC ==
[2023-03-08 17:30] VITALS: PULSE 75
[2023-03-08] MEDS ORDERED: Sodium Chloride 0.9% 10 ML Syringe FLUSH ONE (18:22)
[2023-03-08] MEDS ORDERED: Iopamidol 612 MG/ML 100 ML Bottle IVPUSH ONE (18:22)
[2023-03-08 18:25] LABS: APPEARANCE,URINE CLEAR (Clear); BILIRUBIN,URINE NEGATIVE (Negative); COLOR,URINE YELLOW (Yellow); GLUCOSE,URINE NEGATIVE (Negative); KETONES,URINE NEGATIVE (Negative); LEUKOCYTE ESTERASE,URINE NEGATIVE (Negative); NITRITE,URINE NEGATIVE (Negative); OCCULT BLOOD,URINE NEGATIVE (Negative); PROTEIN,URINE NEGATIVE (Negative); UROBILINOGEN,URINE 0.2 (0.2-1.0)
[2023-03-08] MEDS ORDERED: Magnesium Citrate Solution 296 ML Bottle PO ONE (19:44)
[2023-03-08 20:25] VITALS: BP 116/91
== END 2023-03-08 20:10 | disposition home or self-care (01) ==
LOC: JD.ED 17:03
DX: K59.00 Constipation, unspecified (principal); F17.210 Nicotine dependence, cigarettes, uncomplicated; Z88.0 Allergy status to penicillin; Z88.8 Allergy status to other drugs, medicaments and biological substances; Z79.899 Other long term (current) drug therapy
CPT/HCPCS: 74177; 81003; 81025; 99284; A9270; J3490; Q9967